=== PATIENT | male | born 1990 | race Caucasian/White ===

== ENCOUNTER 2021-12-20 10:41 | Emergency (ER) | payer OTHER ==
[~2021-12-20] VITALS: Ht 190.5 cm; Wt 104.3 kg
[2021-12-20] MEDS ORDERED: LEVOFLOXACIN500 MG PO (13:53)
== END 2021-12-20 14:13 | disposition home or self-care (01) ==
LOC: ED 10:41
DX: N45.1 Epididymitis (principal)
CPT/HCPCS: 76870; 81001; 87491; 96372; 99284-25; J0696